=== PATIENT | female | born 1995 | race Two or more races ===

== ENCOUNTER 2020-03-29 12:22 | Emergency (ER) | payer OTHER ==
[~2020-03-29] VITALS: Ht 149.9 cm; Wt 67.6 kg
== END 2020-03-29 15:49 | disposition home or self-care (01) ==
LOC: ER 12:22
DX: N83.292 Other ovarian cyst, left side (principal); R10.2 Pelvic and perineal pain; Z03.818 Encounter for observation for suspected exposure to other biological agents ruled out

== ENCOUNTER 2021-08-27 10:16 | Emergency (ER) | payer OTHER ==
[~2021-08-27] VITALS: Ht 144.8 cm; Wt 64.4 kg
[2021-08-27] MEDS ORDERED: KETO10TA2 PO (14:05)
== END 2021-08-27 22:53 | disposition home or self-care (01) ==
LOC: ER 10:16
DX: R10.2 Pelvic and perineal pain (principal); N83.202 Unspecified ovarian cyst, left side